=== PATIENT | male | born 1935 | race African-American/Black ===

== ENCOUNTER 2018-12-04 13:29 | Emergency (ER) | payer OTHER ==
[~2018-12-04] VITALS: Ht 165.1 cm; Wt 96.2 kg
[~2018-12-04 13:29] MED LIST: CHOL200074 PO; ERGO500027 PO; FENO160T PO; LOSA100T14 PO; OMEG500C PO; PSYL660P PO; TAMS0.4C2 PO
[2018-12-04 13:40] VITALS: BP 13/73
[2018-12-04] MEDS ORDERED: ACETAMINOPHEN 325 MG TABLET. PO ONE (14:15)
[2018-12-04] MEDS ORDERED: LIDOCAINE (700MG/PATCH) PATCH. TD SCH (14:30)
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
== END 2018-12-04 15:37 | disposition home or self-care (01) ==
LOC: ER 13:29
DX: S16.1XXA Strain of muscle, fascia and tendon at neck level, initial encounter (principal); E78.00 Pure hypercholesterolemia, unspecified; I10 Essential (primary) hypertension; V43.52XA Car driver injured in collision with other type car in traffic accident, initial encounter; Y93.89 Activity, other specified; Y92.410 Unspecified street and highway as the place of occurrence of the external cause; Y99.8 Other external cause status
CPT/HCPCS: 99283

== ENCOUNTER 2021-05-05 19:51 | Emergency (ER) | payer MEDICARE, OTHER ==
[~2021-05-05] VITALS: Ht 165.1 cm; Wt 95.0 kg
[2021-05-05 20:17] VITALS: BP 151/65
--- NOTE | 2021-05-05 20:36 | PHYS DOC ---
Past Medical History Past Medical History: High Cholesterol, Hypertension Additional Past Medical Histor: RIGHT SIDED EAR ACHE/INFECTION Past Surgical History: Other Additional Past Surgical Histo: BACK SURGERY, CARPAL TUNNEL LEFT WRIST. Smoking Status: Former Smoker Alcohol Use: None Drug Use: None General Adult EDM: Chief Complaint: NEURO SYMPTOMS/DEFICITS HPI: HPI: Patient is a 86 year old male with a past medical history hypertension hyperlipidemia presents with a chief complaint of right-sided facial droop. Wi fe states she noticed facial droop yesterday. Patient has had history of otitis media on and off x1 month. Patient has no other symptoms. NIH stroke scale was 1 based on facial droop. Yesterday patient was at his ENT office due to ear pain. Patient had his right ear cleaned and he was placed on prednisone Cipro and oxycodone. Patient states ear pain has resolved. Patient is alert and oriented x4. He has no complaints. Neuro exam NIH stroke scale was 1. Patient's forehead not involved right eye patient appears to have difficulty closing. Right eye appears to be dry. Patient with an asymmetric smile on the right. Upper extremities and lower extremities full range of motion with no focal weakness. Patient has no slurred speech. Review of Systems: Review of Systems: Review of systems: Constitutional symptoms- No fever, no chills. Eyes- No Discharge, No Visual Loss Respiratory symptoms- No shortness of breath, No wheezing, No Dyspnea on Exertion Cardiovascular Systems; No chest pain, No Palpitations, No syncope Gastrointestinal symptoms: NO abdominal pain, no nausea, no vomiting or diarrhea. Genitourinary symptoms: No dysuria. Musculoskeletal symptoms: No back pain No extremity pain. NEUROLOGICAL Symptoms: No headache, no generalized weakness; No focal Weakness positive facial droop Skin: No rash. HEENT positive right ear pain Heart Score: C/O Chest Pain: N/A Risk Factors: Risk Factors: DM, Current or recent (<one month) smoker, HTN, HLP, family history of CAD, obesity. Risk Scores: Score 0 - 3: 2.5% MACE over next 6 weeks - Discharge Home Score 4 - 6: 20.3% MACE over next 6 weeks - Admit for Clinical Observation Score 7 - 10: 72.7% MACE over next 6 weeks - Early Invasive Strategies Allergies: Allergies: Allergies Coded Allergies Type Severity Reaction Last Updated Verified No Known Drug Allergies 06/06/16 No Physical Exam: PE: General: alert, no acute distress. Skin: warm, dry and intact, no erythema, no rash. HENT: bilateral external ears normal, oropharynx moist, nose normal. Head:: Normocephalic, atraumatic. Neck: Trachea midline. Eyes: EOMI, Normal conjunctiva, No drainage CARDIOVASCULAR: Regular rate and rhythm RESPIRATORY: No respiratory distress Back: Full range of motion. MUSCULOSKELETAL: Full range of motion of bilateral upper and lower extremities. GASTROINTESTINAL: Abdomen soft without rebound or guarding. NEUROLOGICAL: Alert and noted to person, place and time. No neurological deficits observed Psychiatric: Cooperative. Normal judgment Patient is alert and oriented x4. He has no complaints. Neuro exam NIH stroke scale was 1. Patient's forehead not involved right eye patient appears to have difficulty closing. Right eye appears to be dry. Patient with an asymmetric smile on the right. Upper extremities and lower extremities full range of motion with no focal weakness. Patient has no slurred speech. Current Patient Data: Vital Signs: Vital Signs Date Time Temp Pulse Resp B/P (MAP) Pulse Ox O2 Delivery O2 Flow Rate FiO2 05/05/21 19:55 98.8 72 16 178/81 (53) 96 Room Air 98.8 EKG: EKG: Performed at 2003 Rate 73 Normal sinus rhythm No ST elevation No ST depression No acute DC [] Radiology/Procedures: Radiology/Procedures: [] Impression: Exam: CT head INDICATION: Facial droop TECHNIQUE: Sequential axial images through the head were obtained without the administration of IV contrast. Exposure: One or more of the following in the visualized dose reduction techniqu es were utilized for this examination: 1. Automated exposure control 2. Adjustment of the MA and/or KV according to patient size 3. Use of iterative of reconstructive technique Comparisons: None FINDINGS: No focal parenchymal lesion or hemorrhage is identified. There is no midline shift or sulcal effacement. Mild patchy evidence in the periventricular white matter. No acute vascular territory infarction is identified. Carvajal-white distinction is preserved. The ventricular system is within normal limits without compression hydrocephalus. The basal cisterns are well maintained. The visualized portions of the paranasal sinuses and mastoid air cells are well- pneumatized. No acute fractures. IMPRESSION: Mild small vessel ischemic change, technically age indeterminate without recent prior imaging. If there are concerns for acute ischemia MRI would better evaluate. Course & Med Decision Making: Course & Med Decision Making Pertinent Labs and Imaging studies reviewed. (See chart for details) [] Patient was evaluated for chief complaint. Work-up consisted of radiologic imaging. CT imaging reviewed. 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 Patient is currently on prednisone taper which was prescribed by his ENT and started yesterday. And is to have patient continue his prednisone. Decision against antivirals because studies have not shown to provide any additional recovery benefit. I do not highly suspect HSV. Patient states he has an follow-up appointment with his ENT on Monday. Advised to follow-up with primary care physician within 1 week. Dragon Disclaimer: Dragon Disclaimer: This electronic medical record was generated, in whole or in part, using a voice recognition dictation system. Departure Departure Impression: Primary Impression: Facial droop Additional Impression: Khan's palsy Disposition: HOME / SELF CARE / HOMELESS Condition: STABLE Referrals: Catalino RAMEY MD (PCP) Patient Instructions: Khan's Palsy PATRICK MOREIRA I DO May 05, 2021 20:35
--- NOTE | 2021-05-05 20:49 | RAD ---
Exam: CT head INDICATION: Facial droop TECHNIQUE: Sequential axial images through the head were obtained without the administration of IV co ntrast. Exposure: One or more of the following in the visualized dose reduction techniques were utilized for this examination: 1. Automated exposure control 2. Adjustment of the MA and/or KV according to patient size 3. Use of iterative of reconstructive technique Comparisons: None FINDINGS: No focal parenchymal lesion or hemorrhage is identified. There is no midline shift or sulcal effaceme nt. Mild patchy evidence in the periventricular white matter. No acute vascular territory infarction is i dentified. Carvajal-white distinction is preserved. The ventricular system is within normal limits without compression hydrocephalus. The basal cisterns are well maintained. The visualized portions of the paranasal sinuses and mastoid air cells are well-pneumatized. No acute fractures. IMPRESSION: Mild small vessel ischemic change, technically age indeterminate without recent prior imaging. If the re are concerns for acute ischemia MRI would better evaluate. Electronically signed by: Ngozi Kong MD (05/05/2021 8:47 PM) LETY
== END 2021-05-05 21:50 | disposition home or self-care (01) ==
LOC: ER 19:51
DX: G51.0 Bell's palsy (principal); E78.00 Pure hypercholesterolemia, unspecified; I10 Essential (primary) hypertension; Z87.891 Personal history of nicotine dependence
CPT/HCPCS: 70450; 99284

== ENCOUNTER 2021-12-13 12:49 | Emergency (ER) | payer MEDICARE ==
[~2021-12-13] VITALS: Ht 165.1 cm; Wt 103.9 kg
--- NOTE | 2021-12-13 14:03 | RAD ---
Exam Date: 12/13/2021 1:35 PM US DPLX VENOUS EXTREMITY UPPER RT Indication: Reason: edema / Spl. Instructions: / History: . PROCEDURE: RIGHT UPPER EXTREMITY VENOUS ULTRASOUND/COLOR DOPPLER WITH SPECTRAL WAVEFORM ANALYSIS HISTORY: Arm swelling TECHNIQUE: Grayscale sonogram, color Doppler, and spectral Doppler waveform analysis of the upper ex tremity venous system was performed, including the internal jugular vein and arm veins. FINDINGS: The internal jugular, subclavian, axillary, brachial, cephalic, basilic, and radial and ul sejal veins show normal compressibility and/or normal color Doppler flow, normal spontaneous phasic wav eforms, or normal response to augmentation. No visible thrombus is seen. Catheter noted in the brach ial vein. IMPRESSION: No evidence for DVT in right upper extremity. Electronically signed by: Yefri Faustin MD (12/13/2021 2:00 PM) [id number]
--- NOTE | 2021-12-13 14:41 | RAD ---
AP chest HISTORY: Dyspnea AP view was taken of the chest. There is a right PICC line extending to the right atrium. Heart is no rmal in size. The aorta is mildly tortuous. There is no pleural effusion. There are no acute infiltra jennifer. IMPRESSION: 1. PICC line extends to the right atrium. 2. No acute infiltrates. Electronically signed by: Ruben Mckeon MD (12/13/2021 2:38 PM) [facility]
[2021-12-13 14:47] LABS: INFLUENZA A PATIENT NEGATIVE (NEGATIVE); INFLUENZA B PATIENT NEGATIVE (NEGATIVE)
[2021-12-13 15:26] LABS: BASO # 0.1 x10^3/uL (0.0-0.2); BASO % 1 % (0-3); EOS # 0.5 x10^3/uL (0.0-0.7); EOS % 5 % (0-3); HEMATOCRIT 32.8 % (39.0-53.0); HEMOGLOBIN 10.8 g/dL (13.0-17.5); LYMPH # 5.2 x10^3/uL (1.0-4.8); LYMPH % 54 % (24-48); MEAN CORPUSCULAR HEMOGLOBIN 29 pg (25-35); MEAN CORPUSCULAR HGB CONC 33 g/dL (31-37); MEAN CORPUSCULAR VOLUME 88 fL (79-100); MONO # 0.8 x10^3/uL (0.0-1.1); MONO % 9 % (0-9); NEUT % 31 % (31-73); PLATELET COUNT 293 x10^3/uL (140-400); RED BLOOD COUNT 3.74 x10^6/uL (4.30-5.70); RED CELL DISTRIBUTION WIDTH 14.3 % (11.5-14.5); WHITE BLOOD COUNT 9.5 x10^3/uL (4.0-11.0)
[2021-12-13 15:38] LABS: CALCIUM 8.7 mg/dL (8.5-10.1); CREATININE 1.3 mg/dL (0.7-1.3); POTASSIUM 4.2 mmol/L (3.5-5.1)
[2021-12-13 15:45] LABS: ALBUMIN 3.1 g/dL (3.4-5.0); ALBUMIN/GLOBULIN RATIO 0.8 (1.0-1.7); MAGNESIUM 2.2 mg/dL (1.8-2.4); TOTAL BILIRUBIN 0.4 mg/dL (0.2-1.0)
[2021-12-13] MEDS ORDERED: METO5TAB4 PO (18:06)
--- NOTE | 2021-12-13 18:06 | PHYS DOC ---
Past Medical History Past Medical History: High Cholesterol, Hypertension Additional Past Medical Histor: RIGHT SIDED EAR ACHE/INFECTION Past Surgical History: Other Additional Past Surgical Histo: BACK SURGERY, CARPAL TUNNEL LEFT WRIST. Smoking Status: Former Smoker Alcohol Use: None Drug Use: None Adult General Chief Complaint Chief Complaint: SHORTNESS OF BREATH HPI HPI Patient is a 86 year old male with right upper extremity swelling. The patient has a history of mastoiditis and has a PICC line in the right arm for a continuous IV infusion of antibiotics. He noticed his arm started to swell about a week ago. He has had the PICC in place for about 2 months now and has 4 weeks left of treatment. He does not have any weakness or numbness of the right upper extremity. The area of swelling does seem to be from the elbow distally and does include the dorsum of the hand. He does not have any limitations in range of motion and there is no erythema or warmth that the patient is noticed at home. He denies any chest pain or shortness of breath. No fever or recent illness. Review of Systems Review of Systems Constitutional: Denies fever Eyes: Denies change in visual acuity or eye pain HENT: Denies sore throat Respiratory: Denies shortness of breath Cardiovascular: Denies chest pain GI: Denies abd pain : Denies dysuria Musculoskeletal: Denies back or extremity injury Integument: Denies rash or skin lesions Neurologic: Denies headache, focal weakness or sensory changes All other systems were reviewed and found to be within normal limits, except as documented in this note. Allergies Allergies Allergies Coded Allergies Type Severity Reaction Last Updated Verified No Known Drug Allergies 06/06/16 No Physical Exam Physical Exam Constitutional: Well developed, well nourished, no acute distress, non-toxic appearance. HENT: Normocephalic, atraumatic, bilateral external ears normal, mucosa moist, nose normal. Eyes: EOMI, conjunctiva normal, no discharge. Neck: Normal range of motion, supple, no stridor, no meningeal signs. Cardiovascular: Regular rate and rhythm Lungs & Thorax: Bilateral breath sounds clear to auscultation Abdomen: Soft, no tenderness or obvious masses Skin: Warm, dry, no erythema, no rash. Extremities: No tenderness, no cyanosis, no clubbing, ROM intact, 1-2+ pitting edema of the right upper extremity without neurovascular compromise distally. No associated warmth or tenderness to touch.. Neurologic: Alert and oriented, normal motor function, normal sensory function, no focal deficits noted. Psychologic: Affect normal, judgement normal, mood normal. Current Patient Data Vital Signs Vital Signs Date Time Temp Pulse Resp B/P (MAP) Pulse Ox O2 Delivery O2 Flow Rate FiO2 12/13/21 17:44 60 25 185/79 (114) 97 Room Air 12/13/21 12:49 98.5 98.5 Lab Values Laboratory Tests Test 12/13/21 14:18 12/13/21 15:07 Influenza Type A Antigen Negative (NEGATIVE) Influenza Type B Antigen Negative (NEGATIVE) SARS-CoV-2 Antigen (Rapid) Negative (NEGATIVE) White Blood Count 9.5 x10^3/uL (4.0-11.0) Red Blood Count 3.74 x10^6/uL (4.30-5.70) L Hemoglobin 10.8 g/dL (13.0-17.5) L Hematocrit 32.8 % (39.0-53.0) L Mean Corpuscular Volume 88 fL (79-100) Mean Corpuscular Hemoglobin 29 pg (25-35) Mean Corpuscular Hemoglobin Concent 33 g/dL (31-37) Red Cell Distribution Width 14.3 % (11.5-14.5) Platelet Count 293 x10^3/uL (140-400) Neutrophils (%) (Auto) 31 % (31-73) Lymphocytes (%) (Auto) 54 % (24-48) H Monocytes (%) (Auto) 9 % (0-9) Eosinophils (%) (Auto) 5 % (0-3) H Basophils (%) (Auto) 1 % (0-3) Neutrophils # (Auto) 3.0 x10^3/uL (1.8-7.7) Lymphocytes # (Auto) 5.2 x10^3/uL (1.0-4.8) H Monocytes # (Auto) 0.8 x10^3/uL (0.0-1.1) Eosinophils # (Auto) 0.5 x10^3/uL (0.0-0.7) Basophils # (Auto) 0.1 x10^3/uL (0.0-0.2) Platelet Estimate Pending D-Dimer (Lizbeth) 0.40 ug/mlFEU (0.00-0.50) Sodium Level 137 mmol/L (136-145) Potassium Level 4.2 mmol/L (3.5-5.1) Chloride Level 103 mmol/L (98-107) Carbon Dioxide Level 27 mmol/L (21-32) Anion Gap 7 (6-14) Blood Urea Nitrogen 16 mg/dL (8-26) Creatinine 1.3 mg/dL (0.7-1.3) Estimated GFR (Cockcroft-Gault) 63.0 BUN/Creatinine Ratio 12 (6-20) Glucose Level 84 mg/dL (70-99) Lactic Acid Level 1.0 mmol/L (0.4-2.0) Calcium Level 8.7 mg/dL (8.5-10.1) Magnesium Level 2.2 mg/dL (1.8-2.4) Total Bilirubin 0.4 mg/dL (0.2-1.0) Aspartate Amino Transferase (AST) 29 U/L (15-37) Alanine Aminotransferase (ALT) 19 U/L (16-63) Alkaline Phosphatase 56 U/L (46-116) Troponin I High Sensitivity 9 ng/L (4-75) IV-Cob-Z-Type Natriuretic Peptide 407 pg/mL (0-449) Total Protein 7.0 g/dL (6.4-8.2) Albumin 3.1 g/dL (3.4-5.0) L Albumin/Globulin Ratio 0.8 (1.0-1.7) L Laboratory Tests 12/13/21 15:07 Laboratory Tests 12/13/21 15:07 EKG EKG [] Radiology/Procedures Radiology/Procedures [] Impressions: PATIENT: RUBEN QUINTEROS AACCOUNT: [id number]#: [id number] : 1935 LOCATION: ER AGE: 86 SEX: M EXAM STATUS: REG ER ORD. PHYSICIAN: ROSA WALLACE MD REASON: dyspnea PROCEDURE: CHEST AP ONLY AP chest HISTORY: Dyspnea AP view was taken of the chest. There is a right PICC line extending to the right atrium. Heart is normal in size. The aorta is mildly tortuous. There is no pleural effusion. There are no acute infiltrates. IMPRESSION: 1. PICC line extends to the right atrium. 2. No acute infiltrates. Electronically signed by: Ruben Mckeon MD (12/13/2021 2:38 PM) [id number] DICTATED and SIGNED BY: RUBEN MCKEON MD DATE: 12/13/21 [id number] PATIENT: RUBEN QUINTEROS ACCOUNT: [id number] : 1935 LOCATION: ER AGE: 86 SEX: M EXAM STATUS: REG ER ORD. PHYSICIAN: ROSA WALLACE MD REASON: edema PROCEDURE: VENOUS UPPER EXTREMITY RIGHT Exam Date: 12/13/2021 1:35 PM US DPLX VENOUS EXTREMITY UPPER RT Indication: Reason: edema / Spl. Instructions: / History: . PROCEDURE: RIGHT UPPER EXTREMITY VENOUS ULTRASOUND/COLOR DOPPLER WITH SPECTRAL WAVEFORM ANALYSIS HISTORY: Arm swelling TECHNIQUE: Grayscale sonogram, color Doppler, and spectral Doppler waveform analysis of the upper extremity venous system was performed, including the internal jugular vein and arm veins. FINDINGS: The internal jugular, subclavian, axillary, brachial, cephalic, basi lic, and radial and ulnar veins show normal compressibility and/or normal color Doppler flow, normal spontaneous phasic waveforms, or normal response to augmentation. No visible thrombus is seen. Catheter noted in the brachial vein. IMPRESSION: No evidence for DVT in right upper extremity. Electronically signed by: Rodo Faustin MD (12/13/2021 2:00 PM) [id number] DICTATED and SIGNED BY: RODO FAUSTIN MD DATE: 12/13/21 [id number] Course & Med Decision Making Course & Med Decision Making Pertinent Labs and Imaging studies reviewed. (See chart for details) [] There is an 86-year-old male with right upper extremity edema. We did get an ultrasound of the arm which is negative evidence of DVT. Chest x-ray and lab studies were unrevealing. Likely this is peripheral edema from the PICC line have been placed along. We put an Smith wrap on the upper extremity and we will put the patient on Zaroxolyn for 3 days in addition to his normal medications. He is to follow-up with his primary care physician on Monday as scheduled, 2 days from now, he is stable for discharge. Dragon Disclaimer Dragon Disclaimer This electronic medical record was generated, in whole or in part, using a voice recognition dictation system. Departure Departure Impression: Primary Impression: Peripheral edema Disposition: HOME / SELF CARE / HOMELESS Condition: STABLE Referrals: Catalino RAMEY MD (PCP) Patient Instructions: Peripheral Edema Scripts Metolazone (METOLAZONE) 5 Mg Tablet 5 MG PO DAILY, #3 TAB 0 Refills Prov: ROSA WALLACE MD 12/13/21 ROSA WALLACE MD Dec 13, 2021 18:06
[2021-12-13 18:14] VITALS: BP 159/72
[2021-12-13 18:29] LABS: % ATYL 2 % (0-0); % EOS 8 % (0-5); % LYMPHS 55 % (24-48); % MONOS 3 % (0-10); % SEGS 32 % (35-66); PLT ESTIMATE ADEQUATE (ADEQUATE)
--- NOTE | 2021-12-14 07:23 | EKG ---
[facility] [address] [place] [address] Test Date: 2021-12-13 Test Time: 13:33:54 Pat Name: ANDER QUINTEROS Department: Room: Gender: M Residential Life Director: : 1935 Requested By: ROSA WALLACE Order Number: [id number] Reading MD: Gomez Cobos MD Measurements Intervals [place] Rate: 61 P: 37 VT: 254 QRS: -12 QRSD: 80 T: 41 QT: 416 QTc: 420 Interpretive Statements SINUS RHYTHM PROLONGED VT INTERVAL Electronically Signed On 12-14-2021 11:00:07 HVAC/R INSTRUCTOR by Gomez Cobos MD
== END 2021-12-13 18:41 | disposition home or self-care (01) ==
LOC: ER 12:49
DX: R60.0 Localized edema (principal); I10 Essential (primary) hypertension; E78.00 Pure hypercholesterolemia, unspecified; Z87.891 Personal history of nicotine dependence
CPT/HCPCS: 36415; 71045; 80053; 83605; 83735; 83880; 84484; 85007; 85025; 85379; 87428; 93005; 93971; 99284-25